=== PATIENT | female | born 1960 | race American Indian/Alaskan Native ===

== ENCOUNTER 2016-08-26 17:13 | Inpatient (IN) | payer OTHER ==
[2016-08-26 18:21] LABS: Hematocrit 37.7 % (30.3-42.9); Hemoglobin 12.3 gm/dl (10.1-14.3); Mean Corpuscular HGB Conc 33 % (30-34); Mean Corpuscular Hemoglobin 26 pg (28-32); Mean Corpuscular Volume 80 fl (79-97); Platelet Count 220 K/mm3 (140-440); Red Blood Count 4.71 M/mm3 (3.65-5.03); Red Cell Distribution Width 16.9 % (13.2-15.2); White Blood Count 18.9 K/mm3 (4.5-11.0)
[2016-08-26 18:31] LABS: INR 1.24 (0.87-1.13)
[2016-08-26 18:39] LABS: BUN/Creatinine Ratio 16.25; Chloride 88.1 mmol/L (98-107)
[2016-08-26 18:48] LABS: Potassium 2.7 mmol/L (3.6-5.0)
[2016-08-26] MEDS ORDERED: NACL 0.9% 1000 ML IV ONE (20:51)
--- NOTE | 2016-08-26 21:00 | Emergency Department Report ---
ED General Adult HPI - General Chief complaint: Extremity Injury, Lower Stated complaint: CANT STAND ON L LEG/BLOOD CLOT Time Seen by Provider: 08/26/16 20:41 Source: patient Mode of arrival: Wheelchair Limitations: No Limitations - History of Present Illness Initial comments: This is a 52-year-old female with a four-day history of fever congestion sore throat cough and anorexia. She reports latoya of temperature being 101. She had temperature when she saw her nurse practitioner earlier today. Her nurse practitioner noted as well that she had left leg that was swollen and encouraged her to go to the emergency department for further evaluation. Patient indicates that in general she is fairly active. She reports having full -time job. She indicates that the left leg is been swollen for the past 2 or 3 days with maximal tenderness in the calf region she does have tenderness going in the posterior thigh as well. She denies any shortness of breath associated with this. She is having increased pain due to the swelling of the left leg as well. She reports taking a fair amount of oral fluids but has had poor solid intake. Onset/Timin -: days(s) Location: lower extremity Radiation: non-radiation Severity scale (0 -10): 5 Quality: aching Consistency: constant Improves with: rest Worsens with: other (movement) - Related Data Allergies Allergy/AdvReac Type Severity Reaction Status Date / Time No Known Allergies Allergy Verified 08/26/16 21:09 ED Review of Systems ROS: Stated complaint: CANT STAND ON L LEG/BLOOD CLOT Other details as noted in HPI Constitutional: fever, weakness. denies: chills Eyes: denies: eye pain, eye discharge, vision change ENT: throat pain, congestion. denies: ear pain Respiratory: denies: cough, shortness of breath, SOB with exertion, wheezing Cardiovascular: denies: chest pain, palpitations Endocrine: no symptoms reported Gastrointestinal: other (anorexia). denies: abdominal pain, nausea, diarrhea Genitourinary: denies: urgency, dysuria, discharge Musculoskeletal: other (L leg pain and swelling). denies: back pain, joint swelling, arthralgia Skin: denies: rash, lesions Neurological: headache. denies: weakness, paresthesias Psychiatric: denies: anxiety, depression Hematological/Lymphatic: denies: easy bleeding, easy bruising ED Past Medical Hx - Past Medical History Hx Hypertension: Yes Additional medical history: obesity - Surgical History Past Surgical History?: No - Social History Smoking Status: Never Smoker Substance Use Type: None ED Physical Exam - General Limitations: No Limitations General appearance: alert, other (mild discomfort) - Head Head exam: Present: atraumatic, normocephalic - Eye Eye exam: Present: normal appearance, PERRL, EOMI - ENT ENT exam: Present: mucous membranes moist, TM's normal bilaterally, other (mild post pharyngeal erythema. No exudates) - Neck Neck exam: Present: normal inspection. Absent: meningismus, lymphadenopathy - Respiratory Respiratory exam: Present: normal lung sounds bilaterally. Absent: respiratory distress - Cardiovascular Cardiovascular Exam: Present: regular rate, normal rhythm. Absent: systolic murmur, diastolic murmur, rubs, gallop - GI/Abdominal GI/Abdominal exam: Present: soft, normal bowel sounds. Absent: tenderness - Extremities Exam Extremities exam: Present: normal inspection, tenderness (LLE in posterior calf and thigh. Significant edema of L leg to knee. Mild aubrey color hue. Distal pedal pulse palpable bilat. No skin breakdown.) - Back Exam Back exam: Present: normal inspection - Neurological Exam Neurological exam: Present: alert, oriented X3 - Psychiatric Psychiatric exam: Present: normal affect, normal mood - Skin Skin exam: Present: warm, dry, intact. Absent: normal color (LLE with mild erythema and warmth), rash ED Course Vital Signs 08/26/16 08/26/16 08/26/16 17:53 22:28 22:29 Temperature 98.6 F Pulse Rate 74 80 Respiratory 18 18 18 Rate Blood Pressure 129/61 Blood Pressure 100/47 [Left] O2 Sat by Pulse 100 98 98 Oximetry - Reevaluation(s) Reevaluation #1: 08/26/16 21:03 Patient's labs demonstrate CBC of white count of 15,000 globe is appropriate with normal indices. Electrolytes studies demonstrate his potassium of 2.7. In regards to the left lower extremity I'm more suspicious of a DVT rather than cellulitis. Patient does not carries risk factors for DVT but for obesity. She has been convalescing the last 4 days ago due to her upper respiratory illness. I think this was set up for a possible DVT. I am not able to get ultrasound of the large semi-today due to the hour. I feel that the patient should be admitted due to her hypokalemia as well as a concern for possible DVT as well as her leukocytosis. We'll call the hospitalist for admission. He should otherwise stable at this time. ED Medical Decision Making - Lab Data Result diagrams: 08/26/16 18:05 08/26/16 18:05 Critical care attestation.: If time is entered above; I have spent that time in minutes in the direct care of this critically ill patient, excluding procedure time. ED Disposition Clinical Impression: Hypokalemia, Viral syndrome, Renal insufficiency DVT (deep venous thrombosis) Qualifiers: DVT location: lower extremity Affected thrombotic vein of extremity: other lower extremity vein Laterality: left Chronicity: acute Qualified Code(s): I82.492 - Acute embolism and thrombosis of other specified deep vein of left lower extremity Disposition: OP ADMITTED IP TO THIS HOSP Is pt being admited?: Yes Does the pt Need Aspirin: No Condition: Stable Time of Disposition: 21:59
[2016-08-26 21:26] LABS: Bacteria,Urine 3+ /HPF (Negative); Bilirubin,Urine NEG (Negative); Blood,Urine NEG (Negative); Ketones,Urine TR mg/dL (Negative); Leukocyte Esterase,Urine MOD (Negative); Mucus,Urine 3+ /HPF; Nitrite,Urine NEG (Negative)
[2016-08-26] MEDS ORDERED: LOVENOX SUB-Q SCH (22:00)
[2016-08-26] MEDS: KCL 10MEQ/100ML 10 MEQ/100 ML BAG IV SCH ×2 (22:01→22:54)
[2016-08-26] MEDS: LOVENOX SUB-Q SCH (22:01)
[2016-08-26] MEDS ORDERED: KCL 10MEQ/100ML 100 ML IV SCH (23:45)
--- NOTE | 2016-08-26 23:48 | Event Note ---
Date: 08/26/16 See H/p in reports SIRS DVT LLE Hypokalemia Leukocytosis
[2016-08-26] MEDS ORDERED: DULCOLAX PR PRN (23:54)
[2016-08-26] MEDS ORDERED: MILK OF MAGNESIA PO PRN (23:54)
[2016-08-26] MEDS ORDERED: ZOFRAN IV PRN (23:54)
[2016-08-27] MEDS: KCL 10MEQ/100ML 10 MEQ/100 ML BAG IV SCH ×2 (00:14→01:06)
[2016-08-27] MEDS: NACL 0.9% 1000 ML 1,000 ML IV SCH ×2 (01:07→14:00)
[2016-08-27] MEDS: TYLENOL PO PRN (01:07)
[2016-08-27] MEDS: DILAUDID IV PRN ×2 (06:00→15:22)
--- NOTE | 2016-08-27 07:38 | Admit Criteria Form ---
Admission Criteria Documentation: DEEP VENOUS THROMBOSIS OF LOWER EXTREMITIES Clinical Indications for Admission to Inpatient Care ( Place 'X' for any and all applicable criteria): Admission is indicated for ANY ONE of the following (1)(2)(3)(4): [ ]I. Documented extensive thrombosis (e.g., clot in vena cava or above iliofemoral bifurcation) [ ]II. Limb-threatening thrombosis (e.g., phlegmasia cerulea dolens) [ ]III. Active bleeding [ ]IV. Recent surgery (e.g., within 6 weeks) [ ]V. Active peptic ulcer disease [ ]. Thrombosis while on anticoagulation [ ]VII. [X ]VIII. Appropriate monitoring and therapy cannot be provided in home or outpatient setting [ ]IX. Thrombolysis (e.g., catheter-directed) or pharmaco mechanical thrombectomy needed (3) [ ]X. Vena cava filter placement planned (3) [ ]XI. Severely diminished cardiopulmonary reserve (e.g., pulmonary hypertension) [ ]XII. Severe renal failure (e.g., GFR less than 30 mL/min/1.73m2 (0.5 mL/sec /1.73m2)) [ ]XIII. Known clotting abnormality or deficiency (antithrombin III, protein C , or protein S) [ ]XIV. History of heparin-induced thrombocytopenia [ ]XV . Personal or family history of bleeding tendency or familial bleeding disorder that requires inpatient admission rather than observation care (Also use Deep Venous Thrombosis of Lower Extremities: Observation Care as appropriate) because of ANY ONE of the following: [ ]a) Significant allergic, autoimmune (thrombocytopenia), or coagulopathic reaction occurs in response to anticoagulation [ ]b) Other significant finding or clinical condition judged not to be within the scope of observation care Extended stay beyond goal length of stay may be needed for(1)(19): [ ]a) Hemorrhage or recent surgery(3) [ ]b) Inadequate oral anticoagulation [ ]c) Recurrent thromboembolism(3) [ ]d) Heparin-induced thrombocytopenia(14) [facility] content created by [facility] has been revised. The portions of the content which have been revised are identified through the use of italic text or in bold, and [facility] has neither reviewed nor approved the modified material. All other unmodified content is copyright [facility]. Please see references footnoted in the original [facility] edition 2016 Admission Criteria Met: Yes
--- NOTE | 2016-08-27 08:07 | History and Physical Report ---
CHIEF COMPLAINT: Fevers, congestion, sore throat, and decreased appetite for four days. HISTORY OF PRESENT ILLNESS: A 56-year-old female who presents with a temperature of 101. She saw a nurse practitioner and was told that she may have a DVT in the left leg because it was swollen and also upper respiratory tract infection. The patient's left leg has been swollen for the past three days. No shortness of breath. Cough productive of yellow sputum. High fever of 101. Taking enough fluids as above, but poor solid intake. No chills. PAST MEDICAL HISTORY: Hypertension and obesity. PAST SURGICAL HISTORY: None. SOCIAL HISTORY: Does not smoke. No alcohol, no recreational drugs. FAMILY HISTORY: Significant for hypertension. REVIEW OF SYSTEMS: Significant for, CONSTITUTIONAL: Fever of 101 and poor appetite. No weight loss. HEENT: Sore throat present. NECK: No neck stiffness or neck pain. CVS: No chest pain, no palpitations. RESPIRATORY: Cough productive of yellow sputum present. GASTROINTESTINAL: No nausea, no vomiting, no diarrhea. MUSCULOSKELETAL: No joint pains. CENTRAL NERVOUS SYSTEM: No syncope, no seizures. PSYCHIATRIC: No depression. SKIN: No rashes. PHYSICAL EXAMINATION: GENERAL: Middle-aged female. VITAL SIGNS: Temperature is 101 and 98.6, pulse is 74, respirations are 18, blood pressure is 129/61, and sats are 100%. HEENT: Unremarkable. Pupils equal and reactive. NECK: Supple, no lymphadenopathy, no thyromegaly. LUNGS: Have scattered rhonchi bilaterally. CVS: S1, S2 heard. No gallop, no murmur, no rub. Apical impulse in the left fifth intercostal space and midclavicular line. ABDOMEN: Soft and benign. No hepatosplenomegaly. No guarding, no rigidity. Hernial office are normal. EXTREMITIES: Left legs were swollen near the calf. There is a difference of about 1-1/2 inches around the left calf and right calf at the same midpoint. Pulses were felt. CENTRAL NERVOUS SYSTEM: Alert and oriented x4. Nonfocal exam. LABORATORY DATA: Significant for white count of 18,900, potassium of 2.7. Sodium 132. BUN and creatinine 26 and 1.6. Urine positive for 75 white cells. ASSESSMENT AND PLAN: 1. Systemic inflammatory response syndrome (SIRS). The patient was put on broad-spectrum antibiotic, IV Levaquin, and IV fluids. 2. Left lower extremity deep venous thrombosis, presumed, wait for the Doppler studies. In the meantime, Lovenox 120 q.12 started. 3. Hypokalemia, being supplemented. 4. Urinary tract infection, the patient was started on Rocephin. 5. Leukocytosis secondary to systemic inflammatory response syndrome. 6. Dehydration, IV fluids. 7. Hypertension, questionable. The patient is not on any medication. Her blood pressure has been 100/47 and 108/50. We will start on antihypertensives as necessary. 8. Deep venous thrombosis prophylaxis. The patient already on Lovenox 120 q.12. JOB# [id number] JOSÉ/YARITZA
[2016-08-27] MEDS ORDERED: LEVAQUIN 750MG/150ML 750 MG/150 ML BAG IV SCH (10:00)
[2016-08-27] MEDS ORDERED: ROCEPHIN/NS 2 GM/100 ML 2 GM/100 ML BAG IV SCH (10:00)
[2016-08-27 10:25] LABS: Hematocrit 36.3 % (30.3-42.9); Hemoglobin 11.8 gm/dl (10.1-14.3); Mean Corpuscular HGB Conc 33 % (30-34); Mean Corpuscular Hemoglobin 26 pg (28-32); Mean Corpuscular Volume 81 fl (79-97); Platelet Count 195 K/mm3 (140-440); Red Cell Distribution Width 16.4 % (13.2-15.2)
[2016-08-27 10:28] LABS: White Blood Count 20.2 K/mm3 (4.5-11.0)
[2016-08-27] MEDS: LOVENOX SUB-Q SCH ×2 (10:30→23:57)
[2016-08-27 10:48] LABS: BUN/Creatinine Ratio 21.66; Calcium 8.5 mg/dL (8.4-10.2); Chloride 94.2 mmol/L (98-107)
--- NOTE | 2016-08-27 12:18 | Progress Note ---
Assessment and Plan Assessment and plan: 1. Left LE cellulitis - r/o DVT; will get venous doppler US for evaluation; patient was started on full dose lovenox by admitting doctor; change antibiotics to clindamycin; of doppler negative will stop lovenox; IV dilaudid for pain 2. sepsis POA due to UTI / cellulitis- cotn clindamycin as above and cont rocephin; monitor WBC 3. Hypokalemia- replace with oral supplementation; check magnesium and phophorus ; monitor 3. Eczema- triamcinolone cream 4. Morbid obesity with IVETTE- nocturnal CPAP 5. DVT prophylaxis- on lovenox History Interval history: f/u LE DVT and cellultis PAtient seen at the bedside; pain in the left leg; also requesting to start triamcinolone for her chronic eczema Hospitalist Physical - Constitutional Vitals: Temp Pulse Resp BP Pulse Ox 97.8 F 106 H 18 135/76 96 08/27/16 09:13 08/27/16 09:13 08/27/16 09:13 08/27/16 09:13 08/27/16 09:13 General appearance: Present: no acute distress, obese (morbid) - EENT Eyes: Present: PERRL, EOM intact. Absent: scleral icterus, conjunctival injection ENT: hearing intact, clear oral mucosa, no oropharyngeal erythema, no poor dentition - Neck Neck: Present: supple, normal ROM. Absent: enlarged thyroid, masses or JVD - Cardiovascular Rhythm: regular Heart Sounds: Present: S1 & S2 - Extremities Extremities: no ischemia, pulses intact, abnormal (Lt leg swollen; warm with redness ) Peripheral Pulses: within normal limits - Abdominal General gastrointestinal: soft, non-tender, non-distended - Integumentary Integumentary: Absent: clear (chronic lichenified areas generally with hyperpigmented patches) - Psychiatric Psychiatric: appropriate mood/affect, intact judgment & insight - Neurologic Neurologic: CNII-XII intact, moves all extremities Results - Labs CBC & Chem 7: 08/27/16 10:03 08/27/16 10:03 Labs: Laboratory Last Values WBC 20.2 K/mm3 (4.5-11.0) H 08/27/16 10:03 RBC 4.50 M/mm3 (3.65-5.03) 08/27/16 10:03 Hgb 11.8 gm/dl (10.1-14.3) 08/27/16 10:03 Hct 36.3 % (30.3-42.9) 08/27/16 10:03 MCV 81 fl (79-97) 08/27/16 10:03 MCH 26 pg (28-32) L 08/27/16 10:03 MCHC 33 % (30-34) 08/27/16 10:03 RDW 16.4 % (13.2-15.2) H 08/27/16 10:03 Plt Count 195 K/mm3 (140-440) 08/27/16 10:03 PT 15.5 Sec. (12.2-14.9) H 08/26/16 18:05 INR 1.24 (0.87-1.13) H 08/26/16 18:05 APTT 35.0 Sec. (24.2-36.6) 08/26/16 18:05 Sodium 134 mmol/L (137-145) L 08/27/16 10:03 Potassium 3.0 mmol/L (3.6-5.0) L 08/27/16 10:03 Chloride 94.2 mmol/L (98-107) L 08/27/16 10:03 Carbon Dioxide 23 mmol/L (22-30) 08/27/16 10:03 Anion Gap 20 mmol/L 08/27/16 10:03 BUN 26 mg/dL (7-17) H 08/27/16 10:03 Creatinine 1.2 mg/dL (0.7-1.2) 08/27/16 10:03 Estimated GFR 57 ml/min 08/27/16 10:03 BUN/Creatinine Ratio 21.66 % 08/27/16 10:03 Glucose 143 mg/dL (65-100) H 08/27/16 10:03 Calcium 8.5 mg/dL (8.4-10.2) 08/27/16 10:03 Urine Color Jolene (Yellow) 08/26/16 20:50 Urine Turbidity Turbid (Clear) 08/26/16 20:50 Urine pH 5.0 (5.0-7.0) 08/26/16 20:50 Ur Specific [place] 1.024 (1.003-1.030) 08/26/16 20:50 Urine Protein 30 mg/dl mg/dL (Negative) 08/26/16 20:50 Urine Glucose (UA) Neg mg/dL (Negative) 08/26/16 20:50 Urine Ketones Tr mg/dL (Negative) 08/26/16 20:50 Urine Blood Neg (Negative) 08/26/16 20:50 Urine Nitrite Neg (Negative) 08/26/16 20:50 Urine Bilirubin Neg (Negative) 08/26/16 20:50 Urine Urobilinogen 4.0 mg/dL (<2.0) 08/26/16 20:50 Ur Leukocyte Esterase Mod (Negative) 08/26/16 20:50 Urine WBC (Auto) 75.0 /HPF (0.0-6.0) H 08/26/16 20:50 Urine RBC (Auto) 28.0 /HPF (0.0-6.0) 08/26/16 20:50 U Epithel Cells (Auto) 29.0 /HPF (0-13.0) H 08/26/16 20:50 Urine Bacteria (Auto) 3+ /HPF (Negative) 08/26/16 20:50 Urine Mucus 3+ /HPF 08/26/16 20:50
[2016-08-27 13:57] LABS: Magnesium 2.2 mg/dL (1.7-2.3); Phosphorous 2.6 mg/dL (2.5-4.5)
[2016-08-27] MEDS: K-DUR PO SCH ×2 (15:00→18:15)
[2016-08-27] MEDS: KENALOG TP SCH ×2 (15:00→23:58)
[2016-08-27] MEDS: CLEOCIN 600 MG/50 mL 600 MG/50 ML BAG IV SCH ×2 (15:07→23:55)
[2016-08-28] MEDS: NACL 0.9% 1000 ML 1,000 ML IV SCH ×2 (01:27→15:50)
[2016-08-28 05:34] LABS: Basophils % (Auto) 0.1 % (0.0-1.8); Eosinophils % (Auto) 0.7 % (0.0-4.3); Hematocrit 34.1 % (30.3-42.9); Hemoglobin 11.1 gm/dl (10.1-14.3); Mean Corpuscular HGB Conc 33 % (30-34); Mean Corpuscular Hemoglobin 26 pg (28-32); Mean Corpuscular Volume 80 fl (79-97); Platelet Count 204 K/mm3 (140-440); Red Blood Count 4.24 M/mm3 (3.65-5.03); Red Cell Distribution Width 16.8 % (13.2-15.2); White Blood Count 16.7 K/mm3 (4.5-11.0)
[2016-08-28 06:20] LABS: BUN/Creatinine Ratio 23.63; Blood Urea Nitrogen 26 mg/dL (7-17); Calcium 8.6 mg/dL (8.4-10.2); Carbon Dioxide 25 mmol/L (22-30); Glucose 126 mg/dL (65-100)
[2016-08-28 06:21] LABS: Chloride 97.3 mmol/L (98-107); Potassium 3.2 mmol/L (3.6-5.0); Sodium 137 mmol/L (137-145)
[2016-08-28 06:25] LABS: Anion Gap 18 mmol/L
[2016-08-28] MEDS ORDERED: K-DUR PO ONE ×2 (07:06→12:00)
[2016-08-28] MEDS: CLEOCIN 600 MG/50 mL 600 MG/50 ML BAG IV SCH ×2 (08:43→15:42)
[2016-08-28] MEDS: ROCEPHIN/NS 1 GM/50 ML 1 GM/50 ML BAG IV SCH (11:29)
[2016-08-28] MEDS: KENALOG TP SCH (11:31)
--- NOTE | 2016-08-28 11:49 | Progress Note ---
Assessment and Plan Assessment and plan: 1. Left LE cellulitis -venous doppler negative for DVT; d/c lovenox; continue current antibiotics; IV dilaudid for pain; leg elevation 2. sepsis POA due to UTI / cellulitis- wbc improving; cotn clindamycin as above and cont rocephin; monitor WBC 3. Hypokalemia-improving; oral supplementation; monitor 3. Eczema- triamcinolone cream 4. Morbid obesity with IVETTE- nocturnal CPAP 5. DVT prophylaxis- lovenox History Interval history: f/u LE DVT and cellultis PAtient seen at the bedside; pain in the left leg has remained the same Hospitalist Physical - Constitutional Vitals: Temp Pulse Resp BP Pulse Ox 98.2 F 72 20 157/95 100 08/28/16 07:20 08/28/16 07:20 08/28/16 07:20 08/28/16 07:20 08/28/16 07:20 General appearance: Present: no acute distress, obese (morbid) - EENT Eyes: Present: PERRL, EOM intact. Absent: scleral icterus, conjunctival injection ENT: hearing intact, clear oral mucosa, no oropharyngeal erythema, no poor dentition - Neck Neck: Present: supple, normal ROM. Absent: enlarged thyroid, masses or JVD - Respiratory Respiratory effort: normal Respiratory: negative: diminished, rales, rhonchi, wheezing - Cardiovascular Rhythm: regular Heart Sounds: Present: S1 & S2. Absent: gallop - Extremities Extremities: no ischemia, pulses intact, pulses symmetrical, No edema, abnormal (LT leg edema and erythema- improving) Peripheral Pulses: within normal limits - Abdominal General gastrointestinal: soft, non-tender, non-distended, normal bowel sounds - Integumentary Integumentary: Present: clear - Psychiatric Psychiatric: appropriate mood/affect, intact judgment & insight, cooperative - Neurologic Neurologic: CNII-XII intact, moves all extremities Results - Labs CBC & Chem 7: 08/28/16 04:50 08/28/16 04:50 Labs: Laboratory Last Values WBC 16.7 K/mm3 (4.5-11.0) H 08/28/16 04:50 RBC 4.24 M/mm3 (3.65-5.03) 08/28/16 04:50 Hgb 11.1 gm/dl (10.1-14.3) 08/28/16 04:50 Hct 34.1 % (30.3-42.9) 08/28/16 04:50 MCV 80 fl (79-97) 08/28/16 04:50 MCH 26 pg (28-32) L 08/28/16 04:50 MCHC 33 % (30-34) 08/28/16 04:50 RDW 16.8 % (13.2-15.2) H 08/28/16 04:50 Plt Count 204 K/mm3 (140-440) 08/28/16 04:50 Lymph % (Auto) 14.9 % (13.4-35.0) 08/28/16 04:50 Martin % (Auto) 8.7 % (0.0-7.3) H 08/28/16 04:50 Eos % (Auto) 0.7 % (0.0-4.3) 08/28/16 04:50 Baso % (Auto) 0.1 % (0.0-1.8) 08/28/16 04:50 Lymph # 2.5 K/mm3 (1.2-5.4) 08/28/16 04:50 Martin # 1.5 K/mm3 (0.0-0.8) H 08/28/16 04:50 Eos # 0.1 K/mm3 (0.0-0.4) 08/28/16 04:50 Baso # 0.0 K/mm3 (0.0-0.1) 08/28/16 04:50 Seg Neutrophils % 75.6 % (40.0-70.0) H 08/28/16 04:50 Seg Neutrophils # 12.7 K/mm3 (1.8-7.7) H 08/28/16 04:50 PT 15.5 Sec. (12.2-14.9) H 08/26/16 18:05 INR 1.24 (0.87-1.13) H 08/26/16 18:05 APTT 35.0 Sec. (24.2-36.6) 08/26/16 18:05 Sodium 137 mmol/L (137-145) 08/28/16 04:50 Potassium 3.2 mmol/L (3.6-5.0) L 08/28/16 04:50 Chloride 97.3 mmol/L (98-107) L 08/28/16 04:50 Carbon Dioxide 25 mmol/L (22-30) 08/28/16 04:50 Anion Gap 18 mmol/L 08/28/16 04:50 BUN 26 mg/dL (7-17) H 08/28/16 04:50 Creatinine 1.1 mg/dL (0.7-1.2) 08/28/16 04:50 Estimated GFR > 60 ml/min 08/28/16 04:50 BUN/Creatinine Ratio 23.63 % 08/28/16 04:50 Glucose 126 mg/dL (65-100) H 08/28/16 04:50 Calcium 8.6 mg/dL (8.4-10.2) 08/28/16 04:50 Phosphorus 2.6 mg/dL (2.5-4.5) 08/27/16 10:03 Magnesium 2.2 mg/dL (1.7-2.3) 08/27/16 10:03 Urine Color Jolene (Yellow) 08/26/16 20:50 Urine Turbidity Turbid (Clear) 08/26/16 20:50 Urine pH 5.0 (5.0-7.0) 08/26/16 20:50 Ur Specific [place] 1.024 (1.003-1.030) 08/26/16 20:50 Urine Protein 30 mg/dl mg/dL (Negative) 08/26/16 20:50 Urine Glucose (UA) Neg mg/dL (Negative) 08/26/16 20:50 Urine Ketones Tr mg/dL (Negative) 08/26/16 20:50 Urine Blood Neg (Negative) 08/26/16 20:50 Urine Nitrite Neg (Negative) 08/26/16 20:50 Urine Bilirubin Neg (Negative) 08/26/16 20:50 Urine Urobilinogen 4.0 mg/dL (<2.0) 08/26/16 20:50 Ur Leukocyte Esterase Mod (Negative) 08/26/16 20:50 Urine WBC (Auto) 75.0 /HPF (0.0-6.0) H 08/26/16 20:50 Urine RBC (Auto) 28.0 /HPF (0.0-6.0) 08/26/16 20:50 U Epithel Cells (Auto) 29.0 /HPF (0-13.0) H 08/26/16 20:50 Urine Bacteria (Auto) 3+ /HPF (Negative) 08/26/16 20:50 Urine Mucus 3+ /HPF 08/26/16 20:50 BLE VENOUS DUPLEX COMPLETED. VAS LAB PRELIMINARY REPORT; NO EVIDENCE OF DVT/SVT NOTED IN VESSELS/SEGMENTS BLE. PHYSICIANS REPORT TO FOLLOW...MAUREENK Initialized on 08/27/16 13:45 - END OF NOTE
[2016-08-28] MEDS ORDERED: PNEUMOVAX 23 IM ONE (12:00)
[2016-08-28] MEDS ORDERED: FLUARIX QUAD 2016-2017(36 MOS+) IM ONE (12:00)
[2016-08-29] MEDS: CLEOCIN 600 MG/50 mL 600 MG/50 ML BAG IV SCH ×4 (00:10→22:36)
[2016-08-29] MEDS: TYLENOL PO PRN (00:12)
[2016-08-29] MEDS: KENALOG TP SCH ×3 (00:15→22:36)
[2016-08-29] MEDS: NACL 0.9% 1000 ML 1,000 ML IV SCH ×2 (04:05→16:02)
[2016-08-29 05:10] LABS: Hematocrit 32.4 % (30.3-42.9); Hemoglobin 10.6 gm/dl (10.1-14.3); Mean Corpuscular HGB Conc 33 % (30-34); Mean Corpuscular Hemoglobin 26 pg (28-32); Mean Corpuscular Volume 80 fl (79-97); Platelet Count 218 K/mm3 (140-440); Red Blood Count 4.05 M/mm3 (3.65-5.03); Red Cell Distribution Width 16.6 % (13.2-15.2); White Blood Count 12.4 K/mm3 (4.5-11.0)
[2016-08-29 06:10] LABS: Basophils % (Manual) 0 % (0.0-1.8); Blastocytes % (Manual) 0 %
[2016-08-29 06:11] LABS: Anisocytosis 1+; Diff Status Complete; Elliptocytes 1+
[2016-08-29 06:20] LABS: BUN/Creatinine Ratio 18.75; Blood Urea Nitrogen 15 mg/dL (7-17); Calcium 8.4 mg/dL (8.4-10.2); Carbon Dioxide 25 mmol/L (22-30); Chloride 100.8 mmol/L (98-107); Glucose 121 mg/dL (65-100); Potassium 3.3 mmol/L (3.6-5.0); Sodium 139 mmol/L (137-145)
[2016-08-29 06:21] LABS: Anion Gap 17 mmol/L
[2016-08-29] MEDS ORDERED: K-DUR PO ONE (10:29)
--- NOTE | 2016-08-29 10:29 | Progress Note ---
Assessment and Plan Assessment and plan: 1. Left LE cellulitis -continue current antibiotics with IV clindamycin; IV dilaudid for pain; leg elevation 2. sepsis POA due to UTI / cellulitis- wbc improving; cotn clindamycin as above and cont rocephin; count improving. 3. Hypokalemia-improving; oral supplementation; monitor 3. Eczema- triamcinolone cream 4. Morbid obesity with IVETTE- nocturnal CPAP 5. DVT prophylaxis- lovenox History Interval history: f/u LE DVT and cellultis PAtient seen at the bedside; pain in the left leg is improving Hospitalist Physical - Constitutional Vitals: Temp Pulse Resp BP Pulse Ox 98.1 F 89 20 143/78 98 08/29/16 08:43 08/29/16 08:43 08/29/16 08:43 08/29/16 08:43 08/29/16 00:00 General appearance: Present: no acute distress, obese (morbid) - EENT Eyes: Present: PERRL, EOM intact. Absent: scleral icterus, conjunctival injection ENT: hearing intact, clear oral mucosa, no oropharyngeal erythema, no poor dentition - Neck Neck: Present: supple, normal ROM. Absent: enlarged thyroid, masses or JVD - Respiratory Respiratory effort: normal Respiratory: negative: diminished, rales, rhonchi, wheezing - Cardiovascular Rhythm: regular Heart Sounds: Present: S1 & S2. Absent: gallop - Extremities Extremities: no ischemia, pulses intact, pulses symmetrical Extremity abnormal: edema, other (left leg-swelling and redness are improving) Peripheral Pulses: within normal limits - Abdominal General gastrointestinal: soft, non-tender, non-distended, normal bowel sounds - Integumentary Integumentary: Present: warm - Psychiatric Psychiatric: appropriate mood/affect, intact judgment & insight, cooperative - Neurologic Neurologic: CNII-XII intact, moves all extremities Results - Labs CBC & Chem 7: 08/29/16 04:28 08/29/16 04:28 Labs: Laboratory Last Values WBC 12.4 K/mm3 (4.5-11.0) H 08/29/16 04:28 RBC 4.05 M/mm3 (3.65-5.03) 08/29/16 04:28 Hgb 10.6 gm/dl (10.1-14.3) 08/29/16 04:28 Hct 32.4 % (30.3-42.9) 08/29/16 04:28 MCV 80 fl (79-97) 08/29/16 04:28 MCH 26 pg (28-32) L 08/29/16 04:28 MCHC 33 % (30-34) 08/29/16 04:28 RDW 16.6 % (13.2-15.2) H 08/29/16 04:28 Plt Count 218 K/mm3 (140-440) 08/29/16 04:28 Lymph % (Auto) 14.9 % (13.4-35.0) 08/28/16 04:50 [place] % (Auto) 8.7 % (0.0-7.3) H 08/28/16 04:50 Eos % (Auto) 0.7 % (0.0-4.3) 08/28/16 04:50 Baso % (Auto) 0.1 % (0.0-1.8) 08/28/16 04:50 Lymph # 2.5 K/mm3 (1.2-5.4) 08/28/16 04:50 [place] # 1.5 K/mm3 (0.0-0.8) H 08/28/16 04:50 Eos # 0.1 K/mm3 (0.0-0.4) 08/28/16 04:50 Baso # 0.0 K/mm3 (0.0-0.1) 08/28/16 04:50 Add Manual Diff Complete 08/29/16 04:28 Total Counted 100 08/29/16 04:28 Seg Neutrophils % 75.6 % (40.0-70.0) H 08/28/16 04:50 Seg Neuts % (Manual) 74.0 % (40.0-70.0) H 08/29/16 04:28 Band Neutrophils % 0 % 08/29/16 04:28 Lymphocytes % (Manual) 18.0 % (13.4-35.0) 08/29/16 04:28 Reactive Lymphs % (Man) 0 % 08/29/16 04:28 Monocytes % (Manual) 6.0 % (0.0-7.3) 08/29/16 04:28 Eosinophils % (Manual) 1.0 % (0.0-4.3) 08/29/16 04:28 Basophils % (Manual) 0 % (0.0-1.8) 08/29/16 04:28 Metamyelocytes % 0 % 08/29/16 04:28 Myelocytes % 1.0 % 08/29/16 04:28 Promyelocytes % 0 % 08/29/16 04:28 Blast Cells % 0 % 08/29/16 04:28 Nucleated RBC % Not Reportable 08/29/16 04:28 Seg Neutrophils # 12.7 K/mm3 (1.8-7.7) H 08/28/16 04:50 Seg Neutrophils # Man 9.2 K/mm3 (1.8-7.7) H 08/29/16 04:28 Band Neutrophils # 0.0 K/mm3 08/29/16 04:28 Lymphocytes # (Manual) 2.2 K/mm3 (1.2-5.4) 08/29/16 04:28 Abs React Lymphs (Man) 0.0 K/mm3 08/29/16 04:28 Monocytes # (Manual) 0.7 K/mm3 (0.0-0.8) 08/29/16 04:28 Eosinophils # (Manual) 0.1 K/mm3 (0.0-0.4) 08/29/16 04:28 Basophils # (Manual) 0.0 K/mm3 (0.0-0.1) 08/29/16 04:28 Metamyelocytes # 0.0 K/mm3 08/29/16 04:28 Myelocytes # 0.1 K/mm3 08/29/16 04:28 Promyelocytes # 0.0 K/mm3 08/29/16 04:28 Blast Cells # 0.0 K/mm3 08/29/16 04:28 WBC Morphology Not Reportable 08/29/16 04:28 Hypersegmented Neuts Not Reportable 08/29/16 04:28 Hyposegmented Neuts Not Reportable 08/29/16 04:28 Hypogranular Neuts Not Reportable 08/29/16 04:28 Smudge Cells Not Reportable 08/29/16 04:28 Toxic Granulation Not Reportable 08/29/16 04:28 Toxic Vacuolation Not Reportable 08/29/16 04:28 Dohle Bodies Not Reportable 08/29/16 04:28 Pelger-Huet Anomaly Not Reportable 08/29/16 04:28 Val Rods Not Reportable 08/29/16 04:28 Platelet Estimate Appears normal 08/29/16 04:28 Clumped Platelets Not Reportable 08/29/16 04:28 Plt Clumps, EDTA Not Reportable 08/29/16 04:28 Large Platelets Not Reportable 08/29/16 04:28 Giant Platelets Not Reportable 08/29/16 04:28 Platelet Satelliting Not Reportable 08/29/16 04:28 Plt Morphology Comment Not Reportable 08/29/16 04:28 RBC Morphology Not Reportable 08/29/16 04:28 Dimorphic RBCs Not Reportable 08/29/16 04:28 Polychromasia Not Reportable 08/29/16 04:28 Hypochromasia Not Reportable 08/29/16 04:28 Poikilocytosis Not Reportable 08/29/16 04:28 Anisocytosis 1+ 08/29/16 04:28 Microcytosis Not Reportable 08/29/16 04:28 Macrocytosis Not Reportable 08/29/16 04:28 Spherocytes Not Reportable 08/29/16 04:28 Pappenheimer Bodies Not Reportable 08/29/16 04:28 Sickle Cells Not Reportable 08/29/16 04:28 Target Cells Not Reportable 08/29/16 04:28 Tear Drop Cells Not Reportable 08/29/16 04:28 Ovalocytes Not Reportable 08/29/16 04:28 Helmet Cells Not Reportable 08/29/16 04:28 [place] Bodies Not Reportable 08/29/16 04:28 [place] Rings Not Reportable 08/29/16 04:28 [place] Cells Not Reportable 08/29/16 04:28 Bite Cells Not Reportable 08/29/16 04:28 Crenated Cell Not Reportable 08/29/16 04:28 Elliptocytes 1+ 08/29/16 04:28 Acanthocytes (Spur) Not Reportable 08/29/16 04:28 Rouleaux Not Reportable 08/29/16 04:28 Hemoglobin C Crystals Not Reportable 08/29/16 04:28 Schistocytes Not Reportable 08/29/16 04:28 Malaria parasites Not Reportable 08/29/16 04:28 Abel Bodies Not Reportable 08/29/16 04:28 Hem Pathologist Commnt No 08/29/16 04:28 PT 15.5 Sec. (12.2-14.9) H 08/26/16 18:05 INR 1.24 (0.87-1.13) H 08/26/16 18:05 APTT 35.0 Sec. (24.2-36.6) 08/26/16 18:05 Sodium 139 mmol/L (137-145) 08/29/16 04:28 Potassium 3.3 mmol/L (3.6-5.0) L 08/29/16 04:28 Chloride 100.8 mmol/L (98-107) 08/29/16 04:28 Carbon Dioxide 25 mmol/L (22-30) 08/29/16 04:28 Anion Gap 17 mmol/L 08/29/16 04:28 BUN 15 mg/dL (7-17) 08/29/16 04:28 Creatinine 0.8 mg/dL (0.7-1.2) 08/29/16 04:28 Estimated GFR > 60 ml/min 08/29/16 04:28 BUN/Creatinine Ratio 18.75 % 08/29/16 04:28 Glucose 121 mg/dL (65-100) H 08/29/16 04:28 Calcium 8.4 mg/dL (8.4-10.2) 08/29/16 04:28 Phosphorus 2.6 mg/dL (2.5-4.5) 08/27/16 10:03 Magnesium 2.2 mg/dL (1.7-2.3) 08/27/16 10:03 Urine Color Jolene (Yellow) 08/26/16 20:50 Urine Turbidity Turbid (Clear) 08/26/16 20:50 Urine pH 5.0 (5.0-7.0) 08/26/16 20:50 Ur Specific [place] 1.024 (1.003-1.030) 08/26/16 20:50 Urine Protein 30 mg/dl mg/dL (Negative) 08/26/16 20:50 Urine Glucose (UA) Neg mg/dL (Negative) 08/26/16 20:50 Urine Ketones Tr mg/dL (Negative) 08/26/16 20:50 Urine Blood Neg (Negative) 08/26/16 20:50 Urine Nitrite Neg (Negative) 08/26/16 20:50 Urine Bilirubin Neg (Negative) 08/26/16 20:50 Urine Urobilinogen 4.0 mg/dL (<2.0) 08/26/16 20:50 Ur Leukocyte Esterase Mod (Negative) 08/26/16 20:50 Urine WBC (Auto) 75.0 /HPF (0.0-6.0) H 08/26/16 20:50 Urine RBC (Auto) 28.0 /HPF (0.0-6.0) 08/26/16 20:50 U Epithel Cells (Auto) 29.0 /HPF (0-13.0) H 08/26/16 20:50 Urine Bacteria (Auto) 3+ /HPF (Negative) 08/26/16 20:50 Urine Mucus 3+ /HPF 08/26/16 20:50
[2016-08-29] MEDS: ROCEPHIN/NS 1 GM/50 ML 1 GM/50 ML BAG IV SCH (10:35)
[2016-08-30 05:47] LABS: Basophils % (Auto) 0.5 % (0.0-1.8); Eosinophils % (Auto) 1.4 % (0.0-4.3); Hematocrit 32.3 % (30.3-42.9); Hemoglobin 10.5 gm/dl (10.1-14.3); Mean Corpuscular HGB Conc 33 % (30-34); Mean Corpuscular Volume 79 fl (79-97); Platelet Count 247 K/mm3 (140-440); Red Blood Count 4.06 M/mm3 (3.65-5.03); Red Cell Distribution Width 16.9 % (13.2-15.2); White Blood Count 11.8 K/mm3 (4.5-11.0)
[2016-08-30 05:48] LABS: Mean Corpuscular Hemoglobin 26 pg (28-32)
[2016-08-30] MEDS: CLEOCIN 600 MG/50 mL 600 MG/50 ML BAG IV SCH (06:15)
[2016-08-30] MEDS ORDERED: K-DUR PO ONE ×2 (08:00→10:36)
[2016-08-30 09:03] VITALS: BP 158/98
--- NOTE | 2016-08-30 09:03 | Discharge Summary ---
Providers - Providers Date of Admission: 08/26/16 22:00 Date of discharge: 08/30/16 Attending physician: APRIL WARE Primary care physician: [employer] [employer] Hospitalization Reason for admission: cellulitis Left leg Condition: Stable Pertinent studies: BLE VENOUS DUPLEX COMPLETED. VAS LAB PRELIMINARY REPORT; NO EVIDENCE OF DVT/SVT NOTED IN VESSELS/SEGMENTS BLE. PHYSICIANS REPORT TO FOLLOW...RSK Initialized on 08/27/16 13:45 - END OF NOTE Hospital course: Mr. Dale is a 56 yo F who presented to the ER with pain and swelling to Left leg with redness; she was started on IV antibiotics for treatment of cellulitis ; venous doppler was negative for DVT. Her cellulitis improved. Condition at dischargestable 31 minutes spent preparing discharge Disposition: DISCHARGED TO HOME OR SELFCARE - Discharge Diagnoses (1) Cellulitis Status: Acute Qualifiers: Site of cellulitis: S Site of cellulitis of extremity: S Site of cellulitis of trunk: S Laterality: L (2) Morbid obesity due to excess calories Status: Chronic Core Measure Documentation - Palliative Care Palliative Care/ Comfort Measures: Not Applicable - Core Measures Any of the following diagnoses?: none Exam - Constitutional Vitals: Temp Pulse Resp BP Pulse Ox 98.3 F 86 20 153/75 100 08/30/16 00:00 08/30/16 00:00 08/30/16 00:00 08/30/16 00:00 08/30/16 00:00 General appearance: Present: no acute distress, obese (morbid) - EENT Eyes: Present: PERRL, EOM intact. Absent: scleral icterus, conjunctival injection ENT: hearing intact, clear oral mucosa, no oropharyngeal erythema, no poor dentition - Neck Neck: Present: supple, normal ROM. Absent: enlarged thyroid, masses or JVD - Respiratory Respiratory effort: normal Respiratory: negative: diminished, rales, rhonchi, wheezing - Cardiovascular Rhythm: regular Heart Sounds: Present: S1 & S2. Absent: gallop - Extremities Extremities: no ischemia, pulses intact, pulses symmetrical, abnormal (left leg mild edema, no warmth or erythema) Peripheral Pulses: within normal limits - Abdominal General gastrointestinal: Present: soft, non-tender, non-distended, normal bowel sounds - Rectal Rectal Exam: deferred - Integumentary Integumentary: Present: clear - Musculoskeletal Musculoskeletal: strength equal bilaterally - Psychiatric Psychiatric: appropriate mood/affect, intact judgment & insight, cooperative - Neurologic Neurologic: CNII-XII intact, moves all extremities Plan Activity: advance as tolerated Diet: low fat, low cholesterol, low salt Special Instructions: other (lifestyle modification to achieve weight loss) Follow up with: PRIMARY CARE, [Primary Care Provider] - 3-5 Days MATTI BROWN MD [Staff Physician] - 7 Days (Evaluation for obstructive sleep apnea) Prescriptions: Clindamycin [Clindamycin CAP] 300 mg PO Q6H 5 Days traMADol [Ultram 50 MG tab] 50 mg PO Q4HR PRN #15 tablet PRN Reason: Pain
[2016-08-30] MEDS: KENALOG TP SCH (10:49)
[2016-08-30] MEDS ORDERED: PNEUMOVAX 23 IM ONE (12:02)
--- NOTE | 2016-09-02 08:40 | Query- Renal Failure ---
Dear Date:_09/02/16 Pin Maker/CDS:Sophia/Sonny De La Cruz Phone#:[phone] Exercise your independent professional judgment when responding to query. Questions asked do not imply a particular answer is desired or expected. We greatly appreciate your clarification on this issue. Clinical Documentation States: 56 Y/O Female admitted on 08/26/16 with a history of HTN and morbid obesity presents with pain and swelling in the left leg with redness. She is found to have cellulitis and Sepsis. Clinical Findings Show: 2 2/ Creat: 1.6 0.8 BUN: 26 15 Est. GFR: 34 >60 Please clarify if you mean: Acute Renal Failure with or due to: [ ] Tubular Necrosis [ ] Medullary Necrosis [x ] Vasomotor Nephropathy [ ] Shock Kidney [ ] Tubular Nephrosis [ ] Renal Tubular Stasis [ ] Cortical Necrosis [ ] Acute Renal Failure (unspecified) [ ] Lower Tubular Nephrosis [ ] Other: [ ] Not Applicable Present on Admission: [ x] Yes (Y) [ ] Clinically undeterminable (W) [ ] No (N) Please also document response in your Progress Notes and/or Discharge Summary and indicate if the condition was present on admission. MTDD
== END 2016-08-30 13:00 | disposition home or self-care (01) | DRG 871 ==
LOC: ED 17:13 → 3A 22:00 → UNDOADMIN 22:00 → 3A 08-27 07:45
PROVIDERS: ADMIT Internal Medicine; ATTEND Hospitalist
PROC: 5A09457 Assistance with Respiratory Ventilation, 24-96 Consecutive Hours, Continuous Positive Airway Pressure (ICD-10-PCS; principal; 2016-08-27)
DX: A41.9 Sepsis, unspecified organism (principal); N17.0 Acute kidney failure with tubular necrosis; L03.116 Cellulitis of left lower limb; N39.0 Urinary tract infection, site not specified; Z68.43 Body mass index [BMI] 50.0-59.9, adult; E87.6 Hypokalemia; I10 Essential (primary) hypertension; E66.01 Morbid (severe) obesity due to excess calories; E86.0 Dehydration; L30.9 Dermatitis, unspecified; G47.33 Obstructive sleep apnea (adult) (pediatric); Z71.3 Dietary counseling and surveillance; Z82.49 Family history of ischemic heart disease and other diseases of the circulatory system
CPT/HCPCS: 36415; 80048; 81001; 83735; 84100; 84132; 85007; 85025; 85027; 85610; 85730; 90686; 90732; 93970; 94660; 96361; 96365; 96375; J0696; J1170; J1650; J2405; J3480; J7030